=== PATIENT | female | born 1985 | race Caucasian/White ===

== ENCOUNTER 2017-08-22 00:24 | Observation (INO) | payer MEDICARE ==
[2017-08-22 01:48] VITALS: BMI 32.0
[2017-08-22 02:06] LABS: MCH 27.3 pg (25.7-33.7); MCHC 32.7 g/dl (32.0-36.0); MEAN CELL VOLUME 83.4 fl (80-96); PLATELET COUNT 269 K/MM3 (134-434); RDW 13.9 % (11.6-15.6); WHITE BLOOD COUNT 22.2 K/mm3 (4.0-10.0)
[2017-08-22] MEDS ORDERED: ONDANSETRON 4 MG/2 ML VIAL IVPUSH ONE ×2 (02:31→04:28)
[2017-08-22] MEDS ORDERED: morphine CARPU-JECT 4 MG/1 ML DISP.SYRIN IVPUSH ONE ×5 (02:31→12:58)
[2017-08-22 02:32] LABS: ALBUMIN 3.9 g/dl (3.4-5.0); ANION GAP 11 (8-16); BILIRUBIN,TOTAL 0.5 mg/dL (0.2-1.0); CALCIUM 9.2 mg/dL (8.5-10.1); CO2 26 mmol/L (21-32); CREATININE 0.5 mg/dL (0.55-1.02); GLUCOSE,RANDOM 117 mg/dL (74-106); SGOT/AST 13 U/L (15-37); SGPT/ALT 22 U/L (12-78); TOT PROT 7.5 g/dl (6.4-8.2)
[2017-08-22 02:33] LABS: ALK PHOS 121 U/L (45-117)
[2017-08-22] MEDS ORDERED: morphine CARPU-JECT 2 MG/1 ML DISP.SYRIN ONE ×3 (02:33→13:10)
[2017-08-22] MEDS ORDERED: ONDANSETRON 4 MG/2 ML VIAL ONE ×3 (02:33→08:16)
--- NOTE | 2017-08-22 03:00 | PDOC ---
Attending Attestation - Resident Resident Name: Maurizio Stahl
[2017-08-22 03:10] LABS: URINE APPEARANCE CLEAR; URINE BILIRUBIN NEGATIVE (NEGATIVE); URINE BLOOD 3+ (NEGATIVE); URINE COLOR LTYELLOW; URINE GLUCOSE (UA) NEGATIVE (NEGATIVE); URINE KETONE TRACE (NEGATIVE); URINE NITRITE NEGATIVE (NEGATIVE); URINE PROTEIN NEGATIVE (NEGATIVE); URINE UROBILINOGEN NEGATIVE mg/dL (0.2-1.0)
[2017-08-22 03:17] LABS: URINE MUCUS RARE; URINE RBC 43 /hpf (0-3)
--- NOTE | 2017-08-22 03:43 | PDOC ---
History of Present Illness - General History Source: Patient Exam Limitations: No Limitations - History of Present Illness Initial Comments: 08/22/17 03:48 The patient is a 32-year-old female, with no significant past medical history, who presents to the ED with diffuse abdominal pain, worse on right side that began last night after the patient had a cup of coffee. Pt reports that she was fine earlier that day and states that her last meal was a hotdog. She states that she vomited 3x before coming to the ED. Pt is currently on her menstrual period. She also reports chills. She denies any fever or diarrhea. She denies any shortness of breath or chest pain. Past Surgical Hx: Nose, L Ear, and Oral Surgery <Fadia Mays - Last Filed: 08/22/17 06:46> <Maurizio Stahl - Last Filed: 08/23/17 09:48> - General Chief Complaint: Pain, Acute Stated Complaint: VOMITING, PAIN Time Seen by Provider: 08/22/17 02:00 Past History <Fadia Mays - Last Filed: 08/22/17 06:46> - Reproductive History Is Patient Now?: No - Immunization History Immunization Up to Date: Yes - Suicide/Smoking/Psychosocial Hx Smoking History: Never smoked Have you smoked in the past 12 months: No Information on smoking cessation initiated: No Hx Alcohol Use: No Drug/Substance Use Hx: No Substance Use Type: None <Maurizio Stahl - Last Filed: 08/23/17 09:48> - Past Medical History Allergies/Adverse Reactions: Allergies Allergy/AdvReac Type Severity Reaction Status Date / Time No Known Allergies Allergy Verified 08/22/17 01:47 Home Medications: Ambulatory Orders Acetaminophen [Pain Relief] 650 mg PO Q6H PRN #120 tablet.er 08/23/17 Simethicone [Mylicon -] 80 mg PO Q6H PRN #120 tab.chew 08/23/17 Review of Systems - Review of Systems Able to Perform ROS?: Yes Comments:: 08/22/17 03:52 GENERAL/CONSTITUTIONAL: No fever or chills. No weakness. HEAD, EYES, EARS, NOSE AND THROAT: No change in vision. No ear pain or discharge. No sore throat. CARDIOVASCULAR: No chest pain or shortness of breath. RESPIRATORY: No cough, wheezing, or hemoptysis. GASTROINTESTINAL: (+) nausea, vomiting, abdominal pain. No diarrhea or constipation. GENITOURINARY: No dysuria, frequency, or change in urination. MUSCULOSKELETAL: No joint or muscle swelling or pain. No neck or back pain. SKIN: No rash NEUROLOGIC: No headache, vertigo, loss of consciousness, or change in strength/ sensation. ENDOCRINE: No increased thirst. No abnormal weight change. HEMATOLOGIC/LYMPHATIC: No anemia, easy bleeding, or history of blood clots. ALLERGIC/IMMUNOLOGIC: No hives or skin allergy. <Fadia Mays - Last Filed: 08/22/17 06:46> *Physical Exam - Vital Signs Last Vital Signs Temp Pulse Resp BP Pulse Ox 97.9 F 96 H 18 133/86 98 08/22/17 01:47 08/22/17 01:47 08/22/17 01:47 08/22/17 01:47 08/22/17 01:47 - Physical Exam Comments: 08/22/17 03:55 GENERAL: Awake, alert, and fully oriented, in no acute distress HEAD: No signs of trauma EYES: PERRLA, EOMI, sclera anicteric, conjunctiva clear ENT: Auricles normal inspection, hearing grossly normal, nares patent, oropharynx clear without exudates. Moist mucosa NECK: Normal ROM, supple, no lymphadenopathy, JVD, or masses LUNGS: Breath sounds equal, clear to auscultation bilaterally. No wheezes, and no crackles HEART: Regular rate and rhythm, normal S1 and S2, no murmurs, rubs or gallops ABDOMEN: (+)Really tender at [place]. Soft, normoactive bowel sounds. No masses EXTREMITIES: Normal range of motion, no edema. No clubbing or cyanosis. No cords, erythema, or tenderness NEUROLOGICAL: Cranial nerves II through XII grossly intact. SKIN: Warm, Dry, normal turgor, no rashes or lesions noted <Fadia Mays - Last Filed: 08/22/17 06:46> - Vital Signs Last Vital Signs Temp Pulse Resp BP Pulse Ox 97.9 F 96 H 18 133/86 98 08/22/17 01:47 08/22/17 01:47 08/22/17 01:47 08/22/17 01:47 08/22/17 01:47 <Maurizio Stahl - Last Filed: 08/23/17 09:48> ED Treatment Course - LABORATORY CBC & Chemistry Diagram: 08/22/17 01:59 08/22/17 01:59 - ADDITIONAL ORDERS Additional order review: Laboratory Results 08/22/17 08/22/17 02:00 01:59 Sodium 140 Potassium 4.2 Chloride 103 Carbon Dioxide 26 Anion Gap 11 BUN 15 Creatinine 0.5 L Creat Clearance w eGFR > 60 Random Glucose 117 H Calcium 9.2 Total Bilirubin 0.5 AST 13 L ALT 22 Alkaline Phosphatase 121 H Total Protein 7.5 Albumin 3.9 Lipase 124 Urine Color Ltyellow Urine Appearance Clear Urine pH 7.0 Urine Protein Negative Urine Glucose (UA) Negative Urine Ketones Trace H Urine Blood 3+ H Urine Nitrite Negative Urine Bilirubin Negative Urine Urobilinogen Negative Urine RBC 43 Ur Epithelial Cells Rare Urine Mucus Rare Urine HCG, Qual Negative 08/22/17 01:59 RBC 5.11 MCV 83.4 MCHC 32.7 RDW 13.9 MPV 9.0 Neutrophils % Advertising Operations Coordinator Lymphocytes % Advertising Operations Coordinator Monocytes % Advertising Operations Coordinator Eosinophils % Advertising Operations Coordinator Basophils % Advertising Operations Coordinator - Medications Given in the ED: ED Medications Discontinued Medications Generic Name Dose Route Start Last Admin Trade Name Freq PRN Reason Stop Dose Admin Morphine Sulfate 4 mg 08/22/17 02:31 08/22/17 02:38 Morphine Injection - IVPUSH 08/22/17 02:32 4 mg ONCE ONE Administration Ondansetron HCl 4 mg 08/22/17 02:31 08/22/17 02:38 Zofran Injection IVPUSH 08/22/17 02:32 4 mg ONCE ONE Administration <Fadia Mays - Last Filed: 08/22/17 06:46> - LABORATORY CBC & Chemistry Diagram: 08/23/17 06:15 08/22/17 01:59 - ADDITIONAL ORDERS Additional order review: Laboratory Results 08/22/17 08/22/17 02:00 01:59 Sodium 140 Potassium 4.2 Chloride 103 Carbon Dioxide 26 Anion Gap 11 BUN 15 Creatinine 0.5 L Creat Clearance w eGFR > 60 Random Glucose 117 H Calcium 9.2 Total Bilirubin 0.5 AST 13 L ALT 22 Alkaline Phosphatase 121 H Total Protein 7.5 Albumin 3.9 Lipase 124 Urine Color Ltyellow Urine Appearance Clear Urine pH 7.0 Urine Protein Negative Urine Glucose (UA) Negative Urine Ketones Trace H Urine Blood 3+ H Urine Nitrite Negative Urine Bilirubin Negative Urine Urobilinogen Negative Urine RBC 43 Ur Epithelial Cells Rare Urine Mucus Rare Urine HCG, Qual Negative 08/22/17 01:59 RBC 5.11 MCV 83.4 MCHC 32.7 RDW 13.9 MPV 9.0 Neutrophils % Advertising Operations Coordinator Lymphocytes % Advertising Operations Coordinator Monocytes % Advertising Operations Coordinator Eosinophils % Advertising Operations Coordinator Basophils % Advertising Operations Coordinator - RADIOLOGY Radiology Studies Ordered: Category Date Time Status ABDOMEN & PELVIS CT WITH CONTR [CT] Stat CT Scan 08/22/17 02:41 Ordered - Medications Given in the ED: ED Medications Discontinued Medications Generic Name Dose Route Start Last Admin Trade Name Freq PRN Reason Stop Dose Admin Morphine Sulfate 4 mg 08/22/17 02:31 08/22/17 02:38 Morphine Injection - IVPUSH 08/22/17 02:32 4 mg ONCE ONE Administration Ondansetron HCl 4 mg 08/22/17 02:31 08/22/17 02:38 Zofran Injection IVPUSH 08/22/17 02:32 4 mg ONCE ONE Administration <Maurizio Stahl - Last Filed: 08/23/17 09:48> Medical Decision Making - Medical Decision Making 08/22/17 03:56 Patient is thought to have possible appendicitis or ovarian cyst. 08/22/17 06:46 Pt is still waiting for Abdomen/Pelvis CT. <Fadia Mays - Last Filed: 08/22/17 06:46> *DC/Admit/Observation/Transfer - Attestations Scribe Attestion: 08/22/17 03:57 Documentation prepared by Fadia Mays, acting as medical insurance verifier for Maurizio Stahl MD. <Fadia Mays - Last Filed: 08/22/17 06:46> - Attestations Physician Attestion: 08/22/17 03:43 I, Dr. Maurizio Stahl, attest that this document has been prepared under my direction and personally reviewed by me in its entirety. I further attest, that it accurately reflects all work, treatment, procedures and medical decision -making performed by me. <Maurizio Stahl - Last Filed: 08/23/17 09:48> Diagnosis at time of Disposition: Abdominal pain Qualifiers: Abdominal location: generalized Qualified Code(s): R10.84 - Generalized abdominal pain Leukocytosis Qualifiers: Leukocytosis type: unspecified Qualified Code(s): D72.829 - Elevated white blood cell count, unspecified - Discharge Dispostion Condition at time of disposition: Improved - Prescriptions
[2017-08-22 04:23] LABS: REACTIVE LYMPHOCYTES 1 % (0-80)
[2017-08-22] MEDS ORDERED: SODIUM CHLORIDE 1,000 ML IV STA ×2 (04:28→07:48)
[2017-08-22] MEDS ORDERED: PIPERACIL/TAZOB 3.375 GM 3.375 GM/50 ML PREMIX IVPB ONE (07:03)
[2017-08-22] MEDS ORDERED: METRONIDAZOLE 500 MG PREMIXED 100 ML IVPB ONE ×2 (07:03→08:16)
[2017-08-22] MEDS ORDERED: ONDANSETRON 4 MG/2 ML VIAL IVPB ONE (07:48)
[2017-08-22] MEDS ORDERED: PIPERACILLIN/TAZOB 3.375 GM 50 ML IVPB ONE (08:16)
[2017-08-22] MEDS ORDERED: morphine CARPU-JECT 10 MG/1 ML DISP.SYRIN ONE (08:16)
[2017-08-22 11:52] LABS: BASOPHIL 0.5 % (0-2.0); EOSINOPHIL 0.1 % (0-4.5); MCH 27.1 pg (25.7-33.7); MCHC 32.6 g/dl (32.0-36.0); MEAN PLT VOLUME 9.1 fl (7.5-11.1); NEUTROPHILS 78.6 % (42.8-82.8); PLATELET COUNT 253 K/MM3 (134-434); RDW 14.3 % (11.6-15.6); WHITE BLOOD COUNT 16.1 K/mm3 (4.0-10.0)
[2017-08-22 12:21] LABS: URINE LEUK ESTERASE Negative (NEGATIVE)
--- NOTE | 2017-08-22 13:02 | PDOC ---
*Physical Exam - Vital Signs Last Vital Signs Temp Pulse Resp BP Pulse Ox 98.2 F 93 H 18 128/81 99 08/22/17 07:33 08/22/17 07:33 08/22/17 07:33 08/22/17 07:33 08/22/17 07:33 ED Treatment Course - LABORATORY CBC & Chemistry Diagram: 08/22/17 11:40 08/22/17 01:59 - ADDITIONAL ORDERS Additional order review: Laboratory Results 08/22/17 08/22/17 08/22/17 11:00 02:00 01:59 Sodium 140 Potassium 4.2 Chloride 103 Carbon Dioxide 26 Anion Gap 11 BUN 15 Creatinine 0.5 L Creat Clearance w eGFR > 60 Random Glucose 117 H Lactic Acid 2.0 Calcium 9.2 Total Bilirubin 0.5 AST 13 L ALT 22 Alkaline Phosphatase 121 H Total Protein 7.5 Albumin 3.9 Lipase 124 Urine Color Ltyellow Urine Appearance Clear Urine pH 7.0 Ur Specific [place] 1.020 Urine Protein Negative Urine Glucose (UA) Negative Urine Ketones Trace H Urine Blood 3+ H Urine Nitrite Negative Urine Bilirubin Negative Urine Urobilinogen Negative Ur Leukocyte Esterase Negative Urine RBC 43 Ur Epithelial Cells Rare Urine Mucus Rare Urine HCG, Qual Negative 08/22/17 08/22/17 11:40 01:59 RBC 4.78 5.11 MCV 83.0 83.4 MCHC 32.6 32.7 RDW 14.3 13.9 MPV 9.1 9.0 Neutrophils % 78.6 88.0 H Lymphocytes % 15.2 D 6.0 L Monocytes % 5.6 D 2.0 L Eosinophils % 0.1 Compliance Project Manager Basophils % 0.5 Compliance Project Manager - RADIOLOGY Radiology Studies Ordered: Category Date Time Status ABDOMEN US -LIMITED [US] Stat Ultrasound 08/22/17 10:44 Completed PELVIC / BLADDER US [US] Routine Ultrasound 08/22/17 Completed TRANSVAGINAL ULTRASOUND US [US] Stat Ultrasound 08/22/17 08:11 Completed - Medications Given in the ED: ED Medications Discontinued Medications Generic Name Dose Route Start Last Admin Trade Name Freq PRN Reason Stop Dose Admin Sodium Chloride 1,000 mls @ 1,000 mls/hr 08/22/17 04:28 08/22/17 04:38 Normal Saline - IV 08/22/17 05:27 1,000 mls/hr ASDIR STA Administration Metronidazole 100 mls @ 100 mls/hr 08/22/17 07:03 08/22/17 09:56 Flagyl 500mg Premixed Ivpb - IVPB 08/22/17 08:02 100 mls/hr ONCE ONE Administration Sodium Chloride 1,000 mls @ 1,000 mls/hr 08/22/17 07:48 08/22/17 08:31 Normal Saline - IV 08/22/17 08:47 1,000 mls/hr ASDIR STA Administration Morphine Sulfate 4 mg 08/22/17 02:31 08/22/17 02:38 Morphine Injection - IVPUSH 08/22/17 02:32 4 mg ONCE ONE Administration Morphine Sulfate 4 mg 08/22/17 04:28 08/22/17 04:38 Morphine Injection - IVPUSH 08/22/17 04:29 4 mg ONCE ONE Administration Morphine Sulfate 4 mg 08/22/17 07:48 08/22/17 10:57 Morphine Injection - IVPUSH 08/22/17 07:49 Not Given ONCE ONE Morphine Sulfate 4 mg 08/22/17 08:11 08/22/17 08:30 Morphine Injection - IVPUSH 08/22/17 08:12 4 mg ONCE ONE Administration Ondansetron HCl 4 mg 08/22/17 02:31 08/22/17 02:38 Zofran Injection IVPUSH 08/22/17 02:32 4 mg ONCE ONE Administration Ondansetron HCl 4 mg 08/22/17 04:28 08/22/17 04:38 Zofran Injection IVPUSH 08/22/17 04:29 4 mg ONCE ONE Administration Ondansetron HCl 4 mg 08/22/17 07:48 08/22/17 08:30 Zofran Injection IVPB 08/22/17 07:49 4 mg ONCE ONE Administration Piperacillin/Tazobactam/Dextrose 3.375 gm 08/22/17 07:03 08/22/17 08:30 Zosyn 3.375gm Ivpb (Premix) IVPB 08/22/17 07:04 3.375 gm ONCE ONE Administration Medical Decision Making - Medical Decision Making 08/22/17 12:59 Sign-out received from outgoing Emergency Physician Dr. Stahl Pt interviewed and examined Ancillary studies reviewed Case discussed in detail with oncoming Emergency Physician including history, physical exam and ancillary studies. Vital Signs Temp Pulse Resp BP Pulse Ox 98.2 F 93 H 18 128/81 99 08/22/17 07:33 08/22/17 07:33 08/22/17 07:33 08/22/17 07:33 08/22/17 07:33 The patient's blood work done should elevate white count of 22. Initially had a CAT scan which demonstrated complex left ovarian cyst. Patient had a transitional child which confirmed this. Had a right upper quadrant ultrasound which showed fatty liver. Repeat white blood cell count 16. Patient is unable to her by mouth and has persistent right upper quadrant pain. We'll admit the patient under observation for further evaluation. Case discussed with [facility] hospitalist who agrees with observation. Case discussed in detail with admitting physician including history, physical exam and ancillary studies. Admitting physician has assumed care for the patient, will follow all pending diagnostics and will complete the evaluation and treatment. *DC/Admit/Observation/Transfer Diagnosis at time of Disposition: Abdominal pain Qualifiers: Abdominal location: generalized Qualified Code(s): R10.84 - Generalized abdominal pain; R10.84 - Generalized abdominal pain Leukocytosis Qualifiers: Leukocytosis type: unspecified Qualified Code(s): D72.829 - Elevated white blood cell count, unspecified; D72.829 - Elevated white blood cell count, unspecified - Discharge Dispostion Condition at time of disposition: Stable Admit: Yes
[2017-08-22] MEDS ORDERED: ONDANSETRON 4 MG/2 ML VIAL IVPB PRN (14:31)
[2017-08-22] MEDS: SODIUM CHLORIDE 1,000 ML IV SCH (14:51)
--- NOTE | 2017-08-22 14:58 | HP ---
CHIEF COMPLAINT: vomiting PCP: none HISTORY OF PRESENT ILLNESS: This is a 32 year old female with no significant PMHx who presented to the ED with abdominal pain and vomiting since yesterday evening after drinking a cup of coffee. The reports she was in good health up until last night and that she had also eaten a hot dog prior to feeling sick. She reports she vomited 3 times prior to arrival in the ED and that it was non-bloody, non-bilious. She states she has not vomited since arriving in the ED and is currently feeling better. She denies any chest pain, shortness of breath, diarrhea, dysuria, frequency, urgency, fever, chills. She reports having a normal bowel movement yesterday ER course was notable for: (1) WBC 22.2->16.1 (2) Received Flagyl, Zosyn (3) CTAP with complex cyst, no evidence of acute appendicitis (4) Transvaginal US with complex left ovarian cyst and free pelvic fluid (5) RUQ ultrasound: normal gallbladder and biliary tree. Diffuse fatty infiltration of the liver Recent Travel: denies PAST MEDICAL HISTORY: denies Social History: Smoking: denies Alcohol: denies Drugs: denies Family History: Allergies No Known Allergies Allergy (Verified 08/22/17 01:47) HOME MEDICATIONS: Home Medications Medication Instructions Recorded NK [No Known Home Medication] 08/22/17 REVIEW OF SYSTEMS CONSTITUTIONAL: Absent: fever, chills, diaphoresis, generalized weakness, malaise, loss of appetite, weight change HEENT: Absent: rhinorrhea, nasal congestion, throat pain, throat swelling, difficulty swallowing, mouth swelling, ear pain, eye pain, visual changes CARDIOVASCULAR: Absent: chest pain, syncope, palpitations, irregular heart rate , lightheadedness, peripheral edema RESPIRATORY: Absent: cough, shortness of breath, dyspnea with exertion, orthopnea, wheezing, stridor, hemoptysis GASTROINTESTINAL: Vomiting x3 yesterday evening after eating a hotdog. Absent: abdominal distension, diarrhea, constipation, melena, hematochezia GENITOURINARY: Absent: dysuria, frequency, urgency, hesitancy, hematuria, flank pain, genital pain MUSCULOSKELETAL: Absent: myalgia, arthralgia, joint swelling, back pain, neck pain SKIN: Absent: rash, itching, pallor HEMATOLOGIC/IMMUNOLOGIC: Absent: easy bleeding, easy bruising, lymphadenopathy, frequent infections ENDOCRINE:Absent: unexplained weight gain, unexplained weight loss, heat intolerance, cold intolerance NEUROLOGIC: Absent: headache, focal weakness or paresthesias, dizziness, unsteady gait, seizure, mental status changes, bladder or bowel incontinence PSYCHIATRIC: Absent: anxiety, depression, suicidal or homicidal ideation, hallucinations. PHYSICAL EXAMINATION Vital Signs - 24 hr 08/22/17 13:38 Temperature 98 F Pulse Rate [ 87 Right Radial] Respiratory 18 Rate Blood Pressure 111/62 [Left Arm] O2 Sat by Pulse 99 Oximetry (%) GENERAL: Awake, alert, and fully oriented, in no acute distress. Obese HEAD: Normal with no signs of trauma. EYES: Pupils equal, round and reactive to light, extraocular movements intact, sclera anicteric, conjunctiva clear. No lid lag. EARS, NOSE, THROAT: Ears normal, nares patent, oropharynx clear without exudates. Moist mucous membranes. NECK: Normal range of motion, supple without lymphadenopathy, JVD, or masses. LUNGS: Breath sounds equal, clear to auscultation bilaterally. No wheezes, and no crackles. No accessory muscle use. HEART: Regular rate and rhythm, normal S1 and S2 without murmur, rub or gallop. ABDOMEN: Soft, nontender, not distended, normoactive bowel sounds, no guarding, no rebound, no masses. No hepatomegaly or splenomegaly. MUSCULOSKELETAL: Normal range of motion at all joints. No bony deformities or tenderness. No CVA tenderness. UPPER EXTREMITIES: 2+ pulses, warm, well-perfused. No cyanosis. No clubbing. No peripheral edema. LOWER EXTREMITIES: 2+ pulses, warm, well-perfused. No calf tenderness. No peripheral edema. NEUROLOGICAL: Cranial nerves II-XII intact. Normal speech. Normal gait. PSYCHIATRIC: Cooperative. Good eye contact. Appropriate mood and affect. SKIN: Warm, dry, normal turgor, no rashes or lesions noted, normal capillary refill. CBCD WBC 16.1 K/mm3 (4.0-10.0) H 08/22/17 11:40 RBC 4.78 M/mm3 (3.60-5.2) 08/22/17 11:40 Hgb 12.9 GM/dL (10.7-15.3) 08/22/17 11:40 Hct 39.6 % (32.4-45.2) 08/22/17 11:40 MCV 83.0 fl (80-96) 08/22/17 11:40 MCHC 32.6 g/dl (32.0-36.0) 08/22/17 11:40 RDW 14.3 % (11.6-15.6) 08/22/17 11:40 Plt Count 253 K/MM3 (134-434) 08/22/17 11:40 MPV 9.1 fl (7.5-11.1) 08/22/17 11:40 CMP Sodium 140 mmol/L (136-145) 08/22/17 01:59 Potassium 4.2 mmol/L (3.5-5.1) 08/22/17 01:59 Chloride 103 mmol/L (98-107) 08/22/17 01:59 Carbon Dioxide 26 mmol/L (21-32) 08/22/17 01:59 Anion Gap 11 (8-16) 08/22/17 01:59 BUN 15 mg/dL (7-18) 08/22/17 01:59 Creatinine 0.5 mg/dL (0.55-1.02) L 08/22/17 01:59 Creat Clearance w eGFR > 60 (>60) 08/22/17 01:59 Random Glucose 117 mg/dL (74-106) H 08/22/17 01:59 Calcium 9.2 mg/dL (8.5-10.1) 08/22/17 01:59 Total Bilirubin 0.5 mg/dL (0.2-1.0) 08/22/17 01:59 AST 13 U/L (15-37) L 08/22/17 01:59 ALT 22 U/L (12-78) 08/22/17 01:59 Alkaline Phosphatase 121 U/L (45-117) H 08/22/17 01:59 Total Protein 7.5 g/dl (6.4-8.2) 08/22/17 01:59 Albumin 3.9 g/dl (3.4-5.0) 08/22/17 01:59 Assessment: This is a 32 year old female with no significant PMHx who presented to the ED with abdominal pain and vomiting since yesterday evening after drinking a cup of coffee and eating a hotdog Plan: 1) GI: Likely viral gastroenteritis - Vomiting resolved - Patient was observed eating steak, mashed potatoes for lunch with no nausea or vomiting - Imaging as above - WBC improving - Observe off abx for now, remains afebrile - IV fluids - Zofran prn 2) : Complex ovarian cyst - F/u outpatient summer clerk 3) F/E/N: - Regular diet - Monitor electrolytes 4) Prophylaxis: - OOB ambulating - SCDs bilaterally 5) Dispo: - Once condition improves CODE STATUS: FULL CODE Visit type - Emergency Visit Emergency Visit: Yes ED Registration Date: 08/22/17 Care time: The patient presented to the Emergency Department on the above date and was hospitalized for further evaluation of their emergent condition. - New Patient This patient is new to me today: Yes Date on this admission: 08/22/17 - Critical Care Critical Care patient: No
[2017-08-22] MEDS ORDERED: ACETAMINOPHEN 325 MG TABLET (FP) PO ONE (16:46)
[2017-08-22] MEDS ORDERED: ACETAMINOPHEN 325 MG TABLET (FP) ONE (17:12)
[2017-08-23] MEDS: SODIUM CHLORIDE 1,000 ML IV SCH (02:16)
[2017-08-23] MEDS ORDERED: SIMETHICONE 80 MG TAB.CHEW (FP) PO PRN (02:33)
[2017-08-23 06:40] VITALS: TEMP 98
[2017-08-23 07:33] LABS: BASOPHIL 0.2 % (0-2.0); EOSINOPHIL 1.2 % (0-4.5); MCH 27.4 pg (25.7-33.7); MCHC 32.8 g/dl (32.0-36.0); MEAN CELL VOLUME 83.6 fl (80-96); MEAN PLT VOLUME 8.9 fl (7.5-11.1); NEUTROPHILS 65.8 % (42.8-82.8); PLATELET COUNT 233 K/MM3 (134-434); RDW 14.1 % (11.6-15.6); WHITE BLOOD COUNT 10.6 K/mm3 (4.0-10.0)
--- NOTE | 2017-08-23 09:52 | DS ---
Physical Examination Vital Signs: Vital Signs Temperature 98.0 F 08/23/17 06:00 Pulse Rate 79 08/23/17 06:00 Respiratory Rate 18 08/23/17 06:00 Blood Pressure 119/70 08/23/17 06:00 O2 Sat by Pulse Oximetry (%) 99 08/22/17 14:48 Labs: CBC, BMP 08/23/17 06:15 Discharge Summary Reason For Visit: ABD PAIN LEKOCYTOSIS Current Active Problems Abdominal pain (Acute) Leukocytosis (Acute) Condition: Improved - Instructions Diet, Activity, Other Instructions: Please return to the ED with new, persistent, or worsening symptoms. Please follow-up with providers as indicated. Referrals: Abrahan Parisi MD [Staff Physician] - 1 Week Chica Steven MD [Staff Physician] - (Please follow-up with gynecology within 2-3 days for further workup of your complex left ovarian cysts) Disposition: HOME - Home Medications Comprehensive Discharge Medication List: Ambulatory Orders Acetaminophen [Pain Relief] 650 mg PO Q6H PRN #120 tablet.er 08/23/17 Simethicone [Mylicon -] 80 mg PO Q6H PRN #120 tab.chew 08/23/17
[2017-08-23] MEDS ORDERED: ACETAMINOPHEN 325 MG TABLET (FP) PO ONE (11:00)
[2017-08-23 11:48] VITALS: BP 118/78; PULSE 80
[2017-08-25 11:00] LABS: URINE WBC 1 /hpf (3-5)
== END 2017-08-23 12:00 | disposition home or self-care (01) ==
LOC: JER 00:24 → JERBED 13:02 → J6S 19:41
PROVIDERS: ADMIT Internal Medicine; ATTEND Registered Nurse
PROC: 3E03329 Introduction of Other Anti-infective into Peripheral Vein, Percutaneous Approach (ICD-10-PCS; principal; 2017-08-22)
PROC: 3E033NZ Introduction of Analgesics, Hypnotics, Sedatives into Peripheral Vein, Percutaneous Approach (ICD-10-PCS; 2017-08-22)
PROC: 3E033GC Introduction of Other Therapeutic Substance into Peripheral Vein, Percutaneous Approach (ICD-10-PCS; 2017-08-22)
PROC: 3E0337Z Introduction of Electrolytic and Water Balance Substance into Peripheral Vein, Percutaneous Approach (ICD-10-PCS; 2017-08-22)
DX: R10.84 Generalized abdominal pain (principal); D72.829 Elevated white blood cell count, unspecified; N83.299 Other ovarian cyst, unspecified side
CPT/HCPCS: 36415; 74177-TC; 76705-TC; 76830-TC; 76856-TC; 80053; 81003; 81015; 83605; 83690; 84703; 85025; 96361; 96365; 96375; 96376; 99284-25; G0378